=== PATIENT | female | born 1995 | race Caucasian/White ===

== ENCOUNTER 2017-06-29 21:29 | Emergency (ER) | payer BC ==
[2017-06-29] MEDS ORDERED: Sodium Chloride 0.9% 1,000 ML IV ONE (21:47)
[2017-06-29] MEDS ORDERED: Ketorolac 30 MG/ML SDV IVPUSH ONE (21:47)
[2017-06-29] MEDS ORDERED: Albuterol/Ipratropium 3.0-0.5 MG/3 ML Neb Soln NEB ONE (21:47)
[2017-06-29] MEDS ORDERED: LORazepam 2 MG/ML SDV IVPUSH ONE (21:47)
--- NOTE | 2017-06-29 21:50 | EDM.PDOC ---
ED HPI GENERAL MEDICAL PROBLEM - General Chief Complaint: Respiratory Problem Stated Complaint: SHORTNESS OF BREATH Time Seen by Provider: 06/29/17 21:48 - History of Present Illness INITIAL COMMENTS - FREE TEXT/NARRATIVE: HISTORY AND PHYSICAL: History of present illness: [Patient presents with stated complaint of shortness of breath, she is in no distress breathing is nonlabored no retractions able to speak in full sentences. 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 She complains of 7 out of 10 headache right unilateral no light sensitivity or noise sensitivity no nausea vomiting headache has been present for one hour No fever nausea vomiting chills sweats no chest pain dizziness or palpitation denies bowel or urine symptoms ] Review of systems: As per history of present illness and below otherwise all systems reviewed and negative. Past medical history: As per history of present illness and as reviewed below otherwise noncontributory. Surgical history: As per history of present illness and as reviewed below otherwise noncontributory. Social history: No reported history of drug or alcohol abuse. Family history: As per history of present illness and as reviewed below otherwise noncontributory. Physical exam: HEENT: Atraumatic, normocephalic, pupils reactive, negative for conjunctival pallor or scleral icterus, mucous membranes moist, throat clear, neck supple, nontender, trachea midline. Lungs: Clear to auscultation, breath sounds equal bilaterally, chest nontender. Heart: S1S2, regular, negative for clicks, rubs, or JVD. Abdomen: Soft, nondistended, nontender. Negative for masses or hepatosplenomegaly. Negative for costovertebral tenderness. Pelvis: Stable nontender. Genitourinary: Deferred. Rectal: Deferred. Extremities: Atraumatic, negative for cords or calf pain. Neurovascular unremarkable. Neuro: Awake, alert, oriented. Cranial nerves II through XII unremarkable. Cerebellum unremarkable. Motor and sensory unremarkable throughout. Exam nonfocal. Diagnostics: []HCG Chest 2 views Therapeutics: []DuoNeb 1 L normal saline bolus Toradol 30 mg IV Ativan 0.5 mg IV Impression: []Anxiety about health Headache Definitive disposition and diagnosis as appropriate pending reevaluation and review of above. 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 Musculoskeletal History: Reports: None Neurological History: Reports: None Psychiatric History: Reports: None Endocrine/Metabolic History: Reports: None Hematologic History: Reports: None Immunologic History: Reports: None Oncologic (Cancer) History: Reports: None Dermatologic History: Reports: None - Infectious Disease History Infectious Disease History: Reports: None - Past Surgical History Head Surgeries/Procedures: Reports: None Social & Family History - Family History Family Medical History: Noncontributory - Tobacco Use Smoking Status *Q: Never Smoker - Caffeine Use Caffeine Use: Reports: None - Recreational Drug Use Recreational Drug Use: No ED ROS GENERAL - Review of Systems Review Of Systems: ROS reveals no pertinent complaints other than HPI. ED EXAM, GENERAL - Physical Exam Exam: See Below Course - Vital Signs Last Recorded V/S: Last Vital Signs Temp 97.7 F 06/29/17 21:40 Pulse 81 06/29/17 21:40 Resp 18 06/29/17 21:40 BP 136/85 06/29/17 21:40 Pulse Ox 98 06/29/17 21:40 - Orders/Labs/Meds Orders: Active Orders 24 hr Category Date Time Status RT Aerosol Therapy [RC] ASDIRECTED Care 06/29/17 21:47 Active Chest 2V [CR] Stat Exams 06/29/17 21:46 Taken Labs: Laboratory Tests 06/29/17 Range/Units 21:57 Urine HCG, Qual NEGATIVE (NEGATIVE) Meds: Medications Discontinued Medications Generic Name Dose Route Start Last Admin Trade Name Freq PRN Reason Stop Dose Admin Albuterol/Ipratropium 3 ml 06/29/17 21:47 06/29/17 22:06 Duoneb 3.0-0.5 Mg/3 Ml NEB 06/29/17 21:48 3 ml ONETIME ONE Administration Sodium Chloride 1,000 mls @ 999 mls/hr 06/29/17 21:47 06/29/17 22:05 Normal Saline IV 06/29/17 22:47 999 mls/hr STAT ONE Administration Ketorolac Tromethamine 30 mg 06/29/17 21:47 06/29/17 22:09 Toradol IVPUSH 06/29/17 21:48 30 mg ONETIME ONE Administration Lorazepam 0.5 mg 06/29/17 21:47 06/29/17 22:10 Ativan IVPUSH 06/29/17 21:48 0.5 mg ONETIME ONE Administration Departure - Departure Time of Disposition: 23:27 Disposition: Home, Self-Care 01 Condition: Good Clinical Impression: Anxiety about health, Headache - Discharge Information Referrals: PCP,None [Primary Care Provider] - Forms: ED Department Discharge Additional Instructions: Medication as prescribed Return if symptoms persist or worsen Follow-up with primary care in 2 weeks [facility] [address] [place] [id number] The following information is given to patients seen in the emergency department who are being discharged to home. This information is to outline your options for follow-up care. We provide all patients seen in our emergency department with a follow-up referral. The need for follow-up, as well as the timing and circumstances, are variable depending upon the specifics of your emergency department visit. If you don't have a primary care physician on staff, we will provide you with a referral. We always advise you to contact your personal physician following an emergency department visit to inform them of the circumstance of the visit and for follow-up with them and/or the need for any referrals to a consulting specialist. The emergency department will also refer you to a specialist when appropriate. This referral assures that you have the opportunity for follow-up care with a specialist. All of these measure are taken in an effort to provide you with optimal care, which includes your follow-up. Under all circumstances we always encourage you to contact your private physician who remains a resource for coordinating your care. When calling for follow-up care, please make the office aware that this follow-up is from your recent emergency room visit. If for any reason you are refused follow-up, please contact the [facility] emergency department at and asked to speak to the emergency department charge nurse. - My Orders Last 24 Hours: My Active Orders 06/29/17 21:46 Chest 2V [CR] Stat 06/29/17 21:47 RT Aerosol Therapy [RC] ASDIRECTED - Assessment/Plan Last 24 Hours: My Active Orders 06/29/17 21:46 Chest 2V [CR] Stat 06/29/17 21:47 RT Aerosol Therapy [RC] ASDIRECTED
--- NOTE | 2017-07-02 11:53 | CR ---
EXAM DATE: 06/29/17 PATIENT'S AGE: 22 Patient: LORA SHRESTHA Facility: [place], [place] Site . Site : 1995 Study: XRay Chest [id number]/1/2017 11:24:59 PM Ordering Physician: Doctor Blanco Final Report: HISTORY: Pain, shortness of breath. FINDINGS: PA and lateral chest radiographs demonstrate a normal cardiac silhouette. Pulmonary vasculature and sharyn are normal. No lobar consolidation or pleural effusion is seen. Bony structures are normal. IMPRESSION: No acute cardiopulmonary disease. Dictated by Sona Villalpando MD @ 06/29/2017 11:33:54 PM Dictated by: Sona Villalpando MD @ 06/29/2017 23:34:05 (Electronic Signature) Report Signed by Proxy. [email or web address]
== END 2017-06-29 23:47 | disposition home or self-care (01) ==
LOC: MW.ED 21:29
DX: F41.9 Anxiety disorder, unspecified (principal); R51 Headache; I10 Essential (primary) hypertension; Z79.899 Other long term (current) drug therapy
CPT/HCPCS: 71020; 81025; 94640; 96361; 96374; 96375; 99285; J1885; J2060; J7040; 99284

== ENCOUNTER 2018-03-23 21:07 | Emergency (ER) | payer SELFPAY ==
[2018-03-23] MEDS ORDERED: Sodium Chloride 0.9% 1,000 ML IV ONE (21:11)
--- NOTE | 2018-03-23 21:17 | EDM.PDOC ---
ED HPI GENERAL MEDICAL PROBLEM - General Chief Complaint: Gastrointestinal Problem Stated Complaint: DIARRHEA Time Seen by Provider: 03/23/18 21:11 - History of Present Illness INITIAL COMMENTS - FREE TEXT/NARRATIVE: HISTORY AND PHYSICAL: History of present illness: Patient's 22-year-old female was in [place] in January and subsequently returned she subsequently developed diarrhea that lasted approximately 20+ days with a crampy abdominal pain there's been no fever chills nausea vomiting vaginal discharge or irregular bleeding or other complaints Review of systems: As per history of present illness and below otherwise all systems reviewed and negative. Past medical history: As per history of present illness and as reviewed below otherwise noncontributory. Surgical history: As per history of present illness and as reviewed below otherwise noncontributory. Social history: No reported history of drug or alcohol abuse. Family history: As per history of present illness and as reviewed below otherwise noncontributory. Physical exam: HEENT: Atraumatic, normocephalic, pupils reactive, negative for conjunctival pallor or scleral icterus, mucous membranes dry, throat clear, neck supple, nontender, trachea midline. Lungs: Clear to auscultation, breath sounds equal bilaterally, chest nontender. Heart: S1S2, regular, negative for clicks, rubs, or JVD. Abdomen: Soft, nondistended, nontender. Negative for masses or hepatosplenomegaly. Negative for costovertebral tenderness. Pelvis: Stable nontender. Genitourinary: Deferred. Rectal: Deferred. Extremities: Atraumatic, negative for cords or calf pain. Neurovascular unremarkable. Neuro: Awake, alert, oriented. Cranial nerves II through XII unremarkable. Cerebellum unremarkable. Motor and sensory unremarkable throughout. Exam nonfocal. Diagnostics: CBC CMP UA hCG stool for C&S O&P stool for C. difficile Therapeutics: 1 L bolus Impression: #1 enteritis rule out infectious diarrhea Definitive disposition and diagnosis as appropriate pending reevaluation and review of above. 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 Musculoskeletal History: Reports: None Neurological History: Reports: None Psychiatric History: Reports: None Endocrine/Metabolic History: Reports: None Hematologic History: Reports: None Immunologic History: Reports: None Oncologic (Cancer) History: Reports: None Dermatologic History: Reports: None - Infectious Disease History Infectious Disease History: Reports: None - Past Surgical History Head Surgeries/Procedures: Reports: None Social & Family History - Family History Family Medical History: Noncontributory - Caffeine Use Caffeine Use: Reports: None ED ROS GENERAL - Review of Systems Review Of Systems: ROS reveals no pertinent complaints other than HPI. ED EXAM, GENERAL - Physical Exam Exam: See Below (The dictation) Course - Vital Signs Last Recorded V/S: Last Vital Signs Temp 37.1 C 03/23/18 21:07 Pulse 73 03/23/18 21:07 Resp 18 03/23/18 21:07 BP 135/88 03/23/18 21:07 Pulse Ox 100 03/23/18 21:07 - Orders/Labs/Meds Orders: Active Orders 24 hr Category Date Time Status CBC WITH AUTO DIFF [HEME] Stat Lab 03/23/18 21:10 Ordered CDIFF TOX A+B [OP] Stat Lab 03/23/18 21:10 Ordered COMPREHENSIVE METABOLIC PN,CMP [CHEM] Stat Lab 03/23/18 21:10 Ordered CULTURE STOOL + CAMPY+SHIGATOX [RM] Stat Lab 03/23/18 21:10 Ordered HCG QUALITATIVE,SERUM [CHEM] Stat Lab 03/23/18 21:11 Ordered Sodium Chloride 0.9% [Normal Saline] 1,000 ml Med 03/23/18 21:11 Active IV STAT Medication Orders Sodium Chloride (Normal Saline) 1,000 mls @ 999 mls/hr IV STAT ONE Stop: 03/23/18 22:11 Meds: Medications Generic Name Dose Route Start Last Admin Trade Name Freq PRN Reason Stop Dose Admin Sodium Chloride 1,000 mls @ 999 mls/hr 03/23/18 21:11 Normal Saline IV 03/23/18 22:11 STAT ONE Departure - Departure Time of Disposition: 21:16 Disposition: Home, Self-Care 01 Condition: Good Clinical Impression: Diarrhea - Discharge Information *PRESCRIPTION DRUG MONITORING PROGRAM REVIEWED*: Not Applicable *COPY OF PRESCRIPTION DRUG MONITORING REPORT IN PATIENT SALMA: Not Applicable Additional Instructions: The following information is given to patients seen in the emergency department who are being discharged to home. This information is to outline your options for follow-up care. We provide all patients seen in our emergency department with a follow-up referral. The need for follow-up, as well as the timing and circumstances, are variable depending upon the specifics of your emergency department visit. If you don't have a primary care physician on staff, we will provide you with a referral. We always advise you to contact your personal physician following an emergency department visit to inform them of the circumstance of the visit and for follow-up with them and/or the need for any referrals to a consulting specialist. The emergency department will also refer you to a specialist when appropriate. This referral assures that you have the opportunity for followup care with a specialist. All of these measure are taken in an effort to provide you with optimal care, which includes your followup. Under all circumstances we always encourage you to contact your private physician who remains a resource for coordinating your care. When calling for followup care, please make the office aware that this follow-up is from your recent emergency room visit. If for any reason you are refused follow-up, please contact the [facility] emergency department at and asked to speak to the emergency department charge nurse. [facility] [address] [place] [id number] Cipro/Flagyl as prescribed push fluids clear liquids as directed follow-up with clinic above call to schedule appointment return as needed as discussed - My Orders Last 24 Hours: My Active Orders 03/23/18 21:10 CBC WITH AUTO DIFF [HEME] Stat CDIFF TOX A+B [OP] Stat COMPREHENSIVE METABOLIC PN,CMP [CHEM] Stat CULTURE STOOL + CAMPY+SHIGATOX [RM] Stat 03/23/18 21:11 HCG QUALITATIVE,SERUM [CHEM] Stat Sodium Chloride 0.9% [Normal Saline] 1,000 ml IV STAT - Assessment/Plan Last 24 Hours: My Active Orders 03/23/18 21:10 CBC WITH AUTO DIFF [HEME] Stat CDIFF TOX A+B [OP] Stat COMPREHENSIVE METABOLIC PN,CMP [CHEM] Stat CULTURE STOOL + CAMPY+SHIGATOX [RM] Stat 03/23/18 21:11 HCG QUALITATIVE,SERUM [CHEM] Stat Sodium Chloride 0.9% [Normal Saline] 1,000 ml IV STAT
[2018-03-23 22:04] LABS: CHLORIDE,CL 104 mmol/L (98-107); SODIUM,NA 138 mmol/L (136-145)
== END 2018-03-23 22:55 | disposition home or self-care (01) ==
LOC: MW.ED 21:07
DX: R19.7 Diarrhea, unspecified (principal)
CPT/HCPCS: 80053; 81001; 84703; 85025; 96360; 99284; J7040

== ENCOUNTER 2021-10-29 00:15 | Emergency (ER) | payer OTHER | END 2021-10-29 01:18 | disposition home or self-care (01) | LOC: MW.ED 00:15 | DX: I10 Essential (primary) hypertension (principal) | CPT/HCPCS: 93005; 93010; 99284; 99284-25 ==

== ENCOUNTER 2023-03-27 16:16 | Inpatient (IN) | payer BC ==
[2023-03-27] MEDS ORDERED: Tranexamic Acid IN NACL,ISO-OS 1,000 MG in Premix Bag 1 BAG IV PRN ×2 (16:58)
[2023-03-27] MEDS ORDERED: Sodium Chloride 0.9% 2.5 ML Syringe FLUSH PRN (16:58)
[2023-03-27] MEDS ORDERED: Misoprostol 200 MCG Tab PO PRN (16:58)
[2023-03-27] MEDS ORDERED: Sodium Chloride 0.9% 10 ML Syringe FLUSH PRN (16:58)
[2023-03-27] MEDS ORDERED: Water For Irrigation,Sterile 1,000 ML Container IRR PRN (16:58)
[2023-03-27] MEDS ORDERED: Butorphanol 1 MG/ML SDV IVPUSH PRN (16:58)
[2023-03-27] MEDS ORDERED: Sodium Chloride 0.9% 20 ML SDV IV PRN (16:58)
[2023-03-27] MEDS ORDERED: Lidocaine 1% 50 ML MDV INJECT PRN (16:58)
[2023-03-27] MEDS ORDERED: Carboprost Tromethamine 250 MCG/1 mL Vial IM PRN (16:58)
[2023-03-27] MEDS ORDERED: Methylergonovine 0.2 MG/1 ML Amp IM PRN (16:58)
[2023-03-27] MEDS ORDERED: Oxytocin/0.9 % Sodium Chloride 30 UNIT/500 ML BAG IV SCH (17:00)
[2023-03-27] MEDS ORDERED: Ampicillin 2 GM in Sodium Chloride 0.9% 100 ML IV ONE (18:00)
[2023-03-27] MEDS: Lactated Ringers 1,000 ML IV SCH ×3 (18:17→22:11)
[2023-03-27 18:42] LABS: HEMATOCRIT 38.9 % (36.0-46.0); HEMOGLOBIN 13.2 g/dL (12.0-16.0); MEAN CORPUSCULAR HEMOGLOBIN 30.2 pg (27.0-32.0); MEAN CORPUSCULAR HGB CONC 33.9 g/dL (31.0-37.0); MEAN PLATELET VOLUME 11.4 fL (7.40-12.00); RED BLOOD CELL COUNT 4.37 M/uL (4.30-5.90); WHITE BLOOD CELL COUNT,WBC 13.5 K/uL (4.0-11.0)
[2023-03-27] MEDS ORDERED: Phenylephrine HCl 0.5 MG/5 ML AMP ONE (19:08)
[2023-03-27] MEDS ORDERED: Ropivacaine/PF 400 MG/200 ML PCA ONE (19:08)
[2023-03-27] MEDS ORDERED: ePHEDrine 50 MG/ML SDV IVPUSH PRN ×2 (19:40)
[2023-03-27] MEDS ORDERED: Phenylephrine HCl 0.5 MG/5 ML AMP IVPUSH PRN (19:40)
[2023-03-27] MEDS ORDERED: Ropivacaine HCl/PF 400 MG in Premix Bag 1 BAG EPIDUR SCH (19:45)
[2023-03-27] MEDS: Ampicillin 1 GM in Sodium Chloride 0.9% 50 ML IV SCH (22:14)
[2023-03-28] MEDS ORDERED: Oxytocin/0.9 % Sodium Chloride 30 UNIT/500 ML BAG IV SCH (01:00)
[2023-03-28] MEDS: Ampicillin 1 GM in Sodium Chloride 0.9% 50 ML IV SCH ×4 (02:19→14:01)
[2023-03-28] MEDS: Lactated Ringers 1,000 ML IV SCH ×3 (03:24→17:53)
[2023-03-28] MEDS ORDERED: fentaNYL 100 MCG/2 ML SDV ONE (12:50)
[2023-03-28] MEDS ORDERED: Bupivacaine 0.25% 10 ML SDV ONE (12:51)
[2023-03-28] MEDS ORDERED: oxyCODONE 5 MG Tab PO PRN (17:33)
[2023-03-28] MEDS ORDERED: Ibuprofen 400 MG Tab PO PRN (17:33)
[2023-03-28] MEDS ORDERED: Lanolin 100% Cream 7 GM Tube TOP PRN (17:33)
[2023-03-28] MEDS ORDERED: Acetaminophen 500 MG Tab PO PRN ×2 (17:33)
[2023-03-28] MEDS ORDERED: Witch Hazel Medicated Pads 40/Jar TOP PRN (17:33)
[2023-03-28] MEDS ORDERED: Docusate Sodium 100 MG Cap PO PRN (17:33)
[2023-03-28] MEDS ORDERED: Benzocaine/Menthol 20%-0.5% Spray 78 GM Cannister TOP PRN (17:33)
[2023-03-28] MEDS ORDERED: Bisacodyl 10 MG Supp RECTAL PRN (17:33)
[2023-03-28] MEDS ORDERED: ceFAZolin 1 GM in Sodium Chloride 0.9% 50 ML IV SCH (17:45)
[2023-03-28 17:47] LABS: PH,UMBILICAL VENOUS 7.311 (7.25-7.45)
[2023-03-28] MEDS: ceFAZolin 1 GM in Sodium Chloride 0.9% 50 ML IV SCH (20:20)
[2023-03-28] MEDS: Ibuprofen 800 MG Tab PO PRN (20:43)
[2023-03-29] MEDS: ceFAZolin 1 GM in Sodium Chloride 0.9% 50 ML IV SCH ×2 (04:31→12:23)
[2023-03-29] MEDS: Ibuprofen 800 MG Tab PO PRN (04:51)
[2023-03-29 06:36] LABS: HEMATOCRIT 28.4 % (36.0-46.0); HEMOGLOBIN 9.7 g/dL (12.0-16.0); MEAN CORPUSCULAR HEMOGLOBIN 30.7 pg (27.0-32.0); MEAN CORPUSCULAR HGB CONC 34.2 g/dL (31.0-37.0); MEAN CORPUSCULAR VOLUME 89.9 fL (80.0-98.0); MEAN PLATELET VOLUME 10.6 fL (7.40-12.00); RED BLOOD CELL COUNT 3.16 M/uL (4.30-5.90); WHITE BLOOD CELL COUNT,WBC 17.23 K/uL (4.0-11.0)
[2023-03-29] MEDS ORDERED: Sodium Chloride 0.9% 250 ML IV SCH (07:15)
== END 2023-03-30 13:00 | disposition home or self-care (01) | DRG 560 ==
LOC: MW.OB 16:16 → MW.OBCHECK 16:16 → MW.OB 16:58 → OBSVTOIN 03-28 16:51 → MW.OB 03-28 23:40
PROVIDERS: ADMIT Obstetrics & Gynecology; ATTEND Obstetrics & Gynecology
PROC: 10E0XZZ Delivery of Products of Conception, External Approach (ICD-10-PCS; principal; 2023-03-28)
PROC: 0UQG7ZZ Repair Vagina, Via Natural or Artificial Opening (ICD-10-PCS; 2023-03-28)
PROC: 10D17Z9 Manual Extraction of Products of Conception, Retained, Via Natural or Artificial Opening (ICD-10-PCS; 2023-03-28)
PROC: 3E033VJ Introduction of Other Hormone into Peripheral Vein, Percutaneous Approach (ICD-10-PCS; 2023-03-28)
PROC: 3E0R3BZ Introduction of Anesthetic Agent into Spinal Canal, Percutaneous Approach (ICD-10-PCS; 2023-03-28)
PROC: 00HU33Z Insertion of Infusion Device into Spinal Canal, Percutaneous Approach (ICD-10-PCS; 2023-03-28)
PROC: 10907ZC Drainage of Amniotic Fluid, Therapeutic from Products of Conception, Via Natural or Artificial Opening (ICD-10-PCS; 2023-03-28)
DX: O42.02 Full-term premature rupture of membranes, onset of labor within 24 hours of rupture (principal); O48.0 Post-term pregnancy; Z37.0 Single live birth; O70.0 First degree perineal laceration during delivery; O75.89 Other specified complications of labor and delivery; O90.81 Anemia of the puerperium; O99.824 Streptococcus B carrier state complicating childbirth; O10.92 Unspecified pre-existing hypertension complicating childbirth; O73.0 Retained placenta without hemorrhage; Z3A.40 40 weeks gestation of pregnancy; O66.2 Obstructed labor due to unusually large fetus
CPT/HCPCS: 01967; 36415; 51702; 59025; 59409; 82803; 84112; 85027; 86592; 86850; 86900; 86901; A9270-GY; J0290; J0690; J2210; J2370; J2590; J2795; J3010; J3490; J7120

== ENCOUNTER 2023-12-10 04:59 | Emergency (ER) | payer BC ==
[2023-12-10 05:25] LABS: BASOPHILS ABSOLUTE AUTO 0.05 K/uL (0.00-0.20); BASOPHILS PERCENT AUTO 0.6 % (0.0-1.0); EOSINOPHILS ABSOLUTE AUTO 0.07 K/uL (0.00-0.45); EOSINOPHILS PERCENT AUTO 0.9 % (0.0-6.0); HEMATOCRIT 40.3 % (37.0-47.0); HEMOGLOBIN 13.9 g/dL (12.0-16.0); IMMATURE GRAN ABSOLUTE AUTO 0.01 K/uL (0.00-0.05); IMMATURE GRAN PERCENT AUTO 0.1 % (0.0-0.4); LYMPHOCYTES PERCENT AUTO 30.3 % (24.0-44.0); MEAN CORPUSCULAR HEMOGLOBIN 29.6 pg (28.0-32.0); MEAN CORPUSCULAR HGB CONC 34.5 g/dL (32.0-36.0); MEAN CORPUSCULAR VOLUME 85.7 fL (83.0-99.0); MEAN PLATELET VOLUME 10.5 fL (9.4-12.3); MONOCYTES ABSOLUTE AUTO 0.59 K/uL (0.00-0.80); MONOCYTES PERCENT AUTO 7.4 % (0.0-8.0); NEUTROPHILS PERCENT AUTO 60.7 % (41.0-71.0); PLATELET COUNT,PLT 234 K/uL (150-400); WHITE BLOOD CELL COUNT,WBC 7.92 K/uL (3.9-11.3)
[2023-12-10] MEDS: Lidocaine 4% 1 each Patch TOP STA (05:31)
[2023-12-10] MEDS: Ondansetron 4 MG/2 ML SDV IVPUSH ONE (05:32)
[2023-12-10] MEDS: Sodium Chloride 0.9% 1,000 ML IV ONE (05:32)
[2023-12-10] MEDS: Famotidine 20 MG/2 ML SDV IVPUSH ONE (05:32)
[2023-12-10] MEDS: Sodium Chloride 0.9% 2.5 ML Syringe FLUSH PRN (05:33)
[2023-12-10] MEDS: Sodium Chloride 0.9% 10 ML Syringe FLUSH PRN (05:33)
[2023-12-10] MEDS: Sucralfate Suspension 1 GM/10 ML Cup PO ONE (05:40)
[2023-12-10 05:52] LABS: ALANINE AMINOTRANSFERASE,ALT 17 IU/L (14-63); ALBUMIN 3.8 g/dL (3.4-5.0); ALKALINE PHOSPHATASE 74 U/L (46-116); ASPARTATE AMNIOTRANSFERASE,AST 11 IU/L (15-37); BILIRUBIN TOTAL 0.4 mg/dL (0.2-1.0); BLOOD UREA NITROGEN,BUN 15 mg/dL (7.0-18.0); CALCIUM 8.7 mg/dL (8.5-10.1); CARBON DIOXIDE,CO2 24.1 mmol/L (21.0-32.0); CHLORIDE,CL 104 mmol/L (98-107); CREATININE 0.6 mg/dL (0.6-1.0); GLUCOSE RANDOM 98 mg/dL (74-106); LIPASE 24 U/L (16-77); POTASSIUM,K 3.7 mmol/L (3.5-5.1); PROTEIN TOTAL,TP 7.5 g/dL (6.4-8.2); SODIUM,NA 140 mmol/L (136-145)
[2023-12-10 05:53] LABS: ESTIMATED GFR 125 mL/min (>60)
[2023-12-10] MEDS: Ketorolac 30 MG/ML SDV IVPUSH ONE (06:18)
[2023-12-10] MEDS: Methocarbamol 750 MG Tab PO STA (06:34)
== END 2023-12-10 08:08 | disposition home or self-care (01) ==
LOC: MW.ED 04:59
DX: R07.2 Precordial pain (principal); I10 Essential (primary) hypertension
CPT/HCPCS: 36415; 71046; 80053; 83690; 84484; 84703; 85025; 85379; 93005; 96361; 96374; 96375; 99285; A9270; J1885; J2405; J3490; J7030; 93010; 99284

== ENCOUNTER 2025-02-16 06:38 | Inpatient (IN) | payer BC, MEDICAID ==
[2025-02-16] MEDS ORDERED: Butorphanol 1 MG/ML SDV IVPUSH PRN (06:58)
[2025-02-16] MEDS ORDERED: Ondansetron 4 MG/2 ML SDV IVPUSH PRN (06:58)
[2025-02-16] MEDS ORDERED: Sodium Chloride 0.9% 2.5 ML Syringe FLUSH PRN (06:58)
[2025-02-16] MEDS ORDERED: Water For Irrigation,Sterile 1,000 ML Container IRR PRN (06:58)
[2025-02-16] MEDS ORDERED: Sodium Chloride 0.9% 10 ML Syringe FLUSH PRN (06:58)
[2025-02-16] MEDS ORDERED: Carboprost Tromethamine 250 MCG/1 mL Vial IM PRN (06:58)
[2025-02-16 07:16] LABS: MEAN PLATELET VOLUME 11.0 fL (9.4-12.3); NRBC ABSOLUTE 0.00 K/uL (0.00-0.02); NRBC PERCENT 0.0 /100WBC (0.0-0.2); PLATELET COUNT,PLT 227 K/uL (150-400); RED BLOOD CELL COUNT 4.08 M/uL (4.10-5.30); WHITE BLOOD CELL COUNT,WBC 9.19 K/uL (3.9-11.3)
[2025-02-16] MEDS: Lactated Ringers 1,000 ML IV SCH (07:30)
[2025-02-16] MEDS: Ropivacaine HCl/PF 400 MG in Premix Bag 1 BAG EPIDUR SCH (07:43)
[2025-02-16] MEDS ORDERED: dexmedeTOMIDine HCl 200 MCG/2 ML SDV ONE (07:48)
[2025-02-16] MEDS ORDERED: Ropivacaine HCl/PF 200 ML ONE (07:48)
[2025-02-16] MEDS ORDERED: ePHEDrine 50 MG/ML SDV IVPUSH PRN (07:51)
[2025-02-16] MEDS ORDERED: dexmedeTOMIDine HCl 200 MCG/2 ML SDV EPIDUR SCH (08:00)
[2025-02-16] MEDS: Oxytocin/0.9 % Sodium Chloride 30 UNIT/500 ML BAG IV SCH (12:35)
[2025-02-16] MEDS ORDERED: Lanolin 100% Cream 7 GM Tube TOP PRN (12:53)
[2025-02-16] MEDS ORDERED: Benzocaine/Menthol 20%-0.5% Spray 78 GM Cannister TOP PRN (12:53)
[2025-02-16 13:51] LABS: PH,UMBILICAL ARTERIAL 7.25 (7.18-7.38)
[2025-02-16 13:52] LABS: PH,UMBILICAL VENOUS 7.38 (7.25-7.45)
[2025-02-16] MEDS: Witch Hazel Medicated Pads 40/Jar TOP PRN (15:24)
== END 2025-02-17 15:55 | disposition home or self-care (01) | DRG 560 ==
LOC: MW.OBCHECK 06:38 → MW.OB 06:40 → MW.OBCHECK 06:58 → MW.OB 06:58 → OBSVTOIN 12:53 → MW.OB 15:29
PROVIDERS: ADMIT Obstetrics & Gynecology; ATTEND Obstetrics & Gynecology
PROC: 10E0XZZ Delivery of Products of Conception, External Approach (ICD-10-PCS; principal; 2025-02-16)
PROC: 3E0R3BZ Introduction of Anesthetic Agent into Spinal Canal, Percutaneous Approach (ICD-10-PCS; 2025-02-16)
DX: O99.824 Streptococcus B carrier state complicating childbirth (principal); Z3A.39 39 weeks gestation of pregnancy; Z37.0 Single live birth; Z79.82 Long term (current) use of aspirin; Z79.899 Other long term (current) drug therapy
CPT/HCPCS: 36415; 51702; 59025; 59409; 82803; 85014; 85018; 85027; 86592; 86850; 86900; 86901; A9270-GY; J0290; J2371; J2590; J2795; J7120